=== PATIENT | female | born 1985 | race American Indian/Alaskan Native ===

== ENCOUNTER 2016-09-21 03:46 | Emergency (ER) | payer SELFPAY ==
[2016-09-21 04:40] LABS: Basophils % (Auto) 1.1 % (0.0-1.8); Eosinophils % (Auto) 3.1 % (0.0-4.3); Hematocrit 40.2 % (30.3-42.9); Hemoglobin 13.4 gm/dl (10.1-14.3); Mean Corpuscular HGB Conc 33 % (30-34); Mean Corpuscular Hemoglobin 29 pg (28-32); Mean Corpuscular Volume 86 fl (79-97); Platelet Count 232 K/mm3 (140-440); Red Blood Count 4.69 M/mm3 (3.65-5.03); Red Cell Distribution Width 13.6 % (13.2-15.2); White Blood Count 5.9 K/mm3 (4.5-11.0)
[2016-09-21 04:59] LABS: Alanine Aminotransferase 12 units/L (7-56); Albumin 3.9 g/dL (3.9-5); Albumin/Globulin Ratio 1.1 %; Alkaline Phosphatase 63 units/L (35-129); Anion Gap 17 mmol/L; BUN/Creatinine Ratio 17.14; Blood Urea Nitrogen 12 mg/dL (7-17); Calcium 8.7 mg/dL (8.4-10.2); Carbon Dioxide 24 mmol/L (22-30); Chloride 102.3 mmol/L (98-107); Glucose 91 mg/dL (65-100); Lipase 22 units/L (13-60); Sodium 139 mmol/L (137-145); Total Protein 7.4 g/dL (6.3-8.2)
[2016-09-21 16:05] LABS: Bilirubin,Urine NEG (Negative); Blood,Urine MOD (Negative); Ketones,Urine NEG (Negative); Leukocyte Esterase,Urine NEG (Negative); Mucus,Urine FEW /HPF; Nitrite,Urine NEG (Negative); Protein,Urine <15 mg/dL mg/dL (Negative); Urobilinogen,Urine < 2.0 mg/dL (<2.0); WBC,Urine < 1.0 /HPF (0.0-6.0)
[2016-09-21] MEDS ORDERED: ALUM-MAG HYDROX-SIMETH 200-200-20MG/5ML PO ONE (17:00)
[2016-09-21] MEDS ORDERED: PERCOCET 5/325 PO ONE (17:00)
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
--- NOTE | 2016-09-21 17:40 | Cat Scan Report ---
FINAL REPORT PROCEDURE: CT HEAD/BRAIN WO CON TECHNIQUE: Computerized tomography of the head was performed without contrast material. HISTORY: Headache. COMPARISON: No prior studies are available for comparison. FINDINGS: Skull and scalp: Normal. Paranasal sinuses: Minimal ethmoid sinusitis.. Ventricles and subarachnoid spaces: Asymmetric of the right ventricular system compared to the left. Cerebrum: No evidence of hemorrhage, acute infarction or mass . Cerebellum and brainstem: No evidence of hemorrhage, acute infarction or mass. Vasculature: Normal. Comments: None. IMPRESSION: No CT evidence of acute intracranial pathology. Asymmetry of the ventricles felt to most likely be related to suboptimal patient positioning. Consider MRI of the brain for further characterization if there is continued clinical concern and patient has no contraindication to MRI. Minimal sinusitis.
[2016-09-21 18:40] VITALS: BP 114/71
== END 2016-09-21 18:15 | disposition home or self-care (01) ==
LOC: ED 03:46
DX: F41.9 Anxiety disorder, unspecified (principal); R07.89 Other chest pain; R10.13 Epigastric pain; R51 Headache; J32.2 Chronic ethmoidal sinusitis; F32.9 Major depressive disorder, single episode, unspecified; F17.200 Nicotine dependence, unspecified, uncomplicated; F41.0 Panic disorder [episodic paroxysmal anxiety]
CPT/HCPCS: 36415; 70450; 80053; 81001; 81025; 83690; 84484; 85025; 93005; 93010

== ENCOUNTER 2019-01-27 11:58 | Outpatient (CLI) | payer OTHER ==
[2019-01-27 12:19] LABS: Hematocrit 39.6 % (30.3-42.9); Hemoglobin 12.9 gm/dl (10.1-14.3); Mean Corpuscular HGB Conc 33 % (30-34); Mean Corpuscular Volume 85 fl (79-97); Platelet Count 271 K/mm3 (140-440); Red Blood Count 4.67 M/mm3 (3.65-5.03); Red Cell Distribution Width 15.5 % (13.2-15.2)
[2019-01-27 12:40] LABS: Alanine Aminotransferase 11 units/L (7-56); BUN/Creatinine Ratio 14; Blood Urea Nitrogen 10 mg/dL (7-17); Calcium 9.2 mg/dL (8.4-10.2); Chol/HDL Ratio 4.31 %; HDL Cholesterol 35 mg/dL (40-59); Hemolysis Index 3; LDL Cholesterol,Direct 113 mg/dL (50-130)
[2019-01-27 13:02] LABS: Free T4 (Free Thyroxine) 0.93 ng/dL (0.76-1.46)
[2019-01-30 13:56] LABS: Vitamin D, 25-OH, D2 <4 ng/mL
== END 2019-01-27 11:59 | disposition home or self-care (01) ==
LOC: LAB 11:58
DX: Z79.899 Other long term (current) drug therapy (principal)
CPT/HCPCS: 36415; 80053; 80061; 82306; 84439; 84443; 85027

== ENCOUNTER 2019-03-29 15:51 | Emergency (ER) | payer OTHER ==
--- NOTE | 2019-03-29 16:03 | Event Note ---
ED Screening Note Date of service: 03/29/19 Time: 16:02 ED Screening Note: Pt complains of chest pain x 2 hours ago hx of panic attacks-states not currently anxious denies leg pain or swelling This initial assessment/diagnostic orders/clinical plan/treatment(s) is/are subject to change based on patients health status, clinical progression and re- assessment by fellow clinical providers in the ED. Further treatment and workup at subsequent clinical providers discretion. Patient/guardian urged not to elope from the ED as their condition may be serious if not clinically assessed and managed. Initial orders include: labs CXR
[2019-03-29 16:59] LABS: HCG Qualitative,Urine Negative (Negative)
[2019-03-29 17:03] LABS: Basophils % (Auto) 0.9 % (0.0-1.8); Eosinophils # (Auto) 0.1 K/mm3 (0.0-0.4); Eosinophils % (Auto) 2.1 % (0.0-4.3); Hematocrit 40.8 % (30.3-42.9); Hemoglobin 13.1 gm/dl (10.1-14.3); Lymphocytes # (Auto) 2.1 K/mm3 (1.2-5.4); Lymphocytes % (Auto) 39.2 % (13.4-35.0); Mean Corpuscular HGB Conc 32 % (30-34); Mean Corpuscular Volume 85 fl (79-97); Monocytes # (Auto) 0.4 K/mm3 (0.0-0.8); Monocytes % (Auto) 6.5 % (0.0-7.3); Platelet Count 319 K/mm3 (140-440); Red Blood Count 4.81 M/mm3 (3.65-5.03); Red Cell Distribution Width 15.5 % (13.2-15.2)
--- NOTE | 2019-03-29 17:17 | XRay Report ---
CHEST 1 VIEW INDICATION: chest pain. COMPARISON: None. FINDINGS: Support devices: None. Heart: Normal. Lungs/Pleura: No acute pulmonary or pleural findings. IMPRESSION: 1. No acute findings. Signer Name: Ricardo Luke MD Signed: 03/29/2019 5:13 PM Workstation Name: [id number]
[2019-03-29 17:31] LABS: Alanine Aminotransferase 11 units/L (7-56); Albumin 4.1 g/dL (3.9-5); BUN/Creatinine Ratio 11; Blood Urea Nitrogen 8 mg/dL (7-17); Calcium 9.4 mg/dL (8.4-10.2); Hemolysis Index 13
--- NOTE | 2019-03-30 00:19 | Emergency Department Report ---
- General Chief Complaint: Chest Pain Stated Complaint: CHEST PAIN Time Seen by Provider: 03/29/19 16:01 Source: patient Mode of arrival: Ambulatory Limitations: No Limitations - History of Present Illness Initial Comments: Chest pain with coughing MD Complaint: cough -: Gradual, days(s) Quality: aching Consistency: intermittent Improves With: nothing Worsens With: other (coughing) Associated Symptoms: headache, nasal congestion, cough, chest pain. denies: fever, chills, myalgias, diaphoresis, rhinorrhea, sore throat, stiff neck, shortness of breath, abdominal pain, nausea, vomiting, diarrhea, dysuria, rash, confusion, right sweats, weight loss, epistaxis, hoarseness, ear pain - Related Data Home Medications Medication Instructions Recorded Confirmed Last Taken clonazePAM [Klonopin] 1 mg PO BID PRN 06/15/13 06/21/13 06/14/13 Previous Rx's Medication Instructions Recorded Last Taken Type Acetaminophen/Codeine [Tylenol #3] 1 tab PO Q6H PRN #14 tab 06/21/13 Unknown Rx Ciprofloxacin HCl [Cipro] 500 mg PO Q12H #20 tab 06/21/13 Unknown Rx Phenazopyridine [Pyridium] 200 mg PO PC #10 tablet 06/21/13 Unknown Rx Amoxicillin/K Clav Tab [Augmentin 1 tab PO BID #20 tablet 12/08/13 Unknown Rx 875MG] Fluticasone Propionate [Flonase] 2 sprays NS QDAY #1 spray 12/08/13 Unknown Rx Loratadine (Nf) [Claritin] 10 mg PO DAILY #30 tablet 12/08/13 Unknown Rx Promethazine /Codeine 5 ml PO Q6H PRN #150 udc 12/08/13 Unknown Rx [Phenergan/Codeine 6.25-10 mg/5 ml] predniSONE [Deltasone] 50 mg PO QDAY #5 tab 12/08/13 Unknown Rx Acetaminophen/Codeine 1 tab PO Q6H PRN #20 tab 04/30/14 Unknown Rx [Acetaminophen-Codeine #3 TAB] Sulfamethoxazole/Trimethoprim 1 each PO BID #20 tablet 04/30/14 Unknown Rx [Bactrim Ds] Albuterol Sulfate [Ventolin HFA] 2 puff IH Q4H PRN #1 hfa.aer.ad 06/23/14 Unknown Rx EPINEPHrine [Epipen 2-Jordan] 0.3 mg IJ ONCE PRN #.6 ml 06/23/14 Unknown Rx Famotidine [Pepcid] 20 mg PO BID #6 tablet 06/23/14 Unknown Rx diphenhydrAMINE [Benadryl] 50 mg PO Q6HR #24 capsule 06/23/14 Unknown Rx predniSONE [Deltasone] 10 mg PO .TAPER #48 tab 06/23/14 Unknown Rx Amoxicillin/K Clav Tab [Augmentin 1 tab PO Q12HR #14 tab 09/21/16 Unknown Rx 875 mg] Escitalopram Oxalate [Lexapro] 5 mg PO QDAY #30 tablet 09/21/16 Unknown Rx Famotidine [Pepcid] 20 mg PO BID #30 tablet 09/21/16 Unknown Rx clonazePAM [Klonopin] 1 mg PO BID #28 tablet 09/21/16 Unknown Rx oxyCODONE /ACETAMINOPHEN [Percocet 1 tab PO Q6HR PRN #20 tablet 09/21/16 Unknown Rx 5/325] Benzonatate [Tessalon Perles] 100 mg PO Q8HR PRN #12 capsule 03/30/19 Unknown Rx Allergies Allergy/AdvReac Type Severity Reaction Status Date / Time acetaminophen [From Vicodin] Allergy Rash Verified 03/29/19 15:53 hydrocodone bitartrate Allergy Rash Verified 03/29/19 15:53 [From Vicodin] ibuprofen AdvReac ANXIETY Verified 03/29/19 15:53 ED Review of Systems ROS: Stated complaint: CHEST PAIN Other details as noted in HPI Other: GENERAL: No weight change, fatigue, fever, chills, or night sweats SKIN: No changes in skin or hair, no itching, no rashes, no jaundice HEAD: No trauma EYES: No blurriness, tearing, itching, acute visual loss, conjunctival discoloration, or scleral icterus EARS: No hearing loss, tinnitus, vertigo, or earache NOSE: No rhinorrhea, stuffiness, sneezing, itching, or epistaxis MOUTH: No bleeding gums, hoarseness, sore throat, or swelling CARDIAC: Chest pain with cough. No new murmur, palpitations, dyspnea on exertion, orthopnea, PND, or edema RESPIRATORY: Cough. No shortness of breath, wheeze, sputum production, hemoptysis GI: No abdominal pain, nausea, vomiting, dysphagia, diarrhea, constipation, hematemesis, melena, hematochezia URINARY: No frequency, urgency, polyuria, dysuria, hematuria, or incontinence MUSCULOSKELETAL: No muscle weakness, joint stiffness, decrease in range of motion, redness, swelling NEUROLOGIC: No headache, syncope, loss of sensation, numbness, tingling, tremors, weakness, paralysis, seizures HEMATOLOGIC: No anemia, easy bruising, bleeding, petechiae, or purpura ENDOCRINE: No hot or cold intolerance, sweating, polyuria, polydipsia or, polyphagia no thyroid problems PSYCHIATRIC: No change in mood, no anxiety, no depression ED Past Medical Hx - Past Medical History Hx Psychiatric Treatment: Yes (panic attacks, depression/anxiety) - Surgical History Additional Surgical History: - Social History Smoking Status: Current Every Day Smoker Substance Use Type: None - Medications Home Medications: Home Medications Medication Instructions Recorded Confirmed Last Taken Type clonazePAM [Klonopin] 1 mg PO BID PRN 06/15/13 06/21/13 06/14/13 History Acetaminophen/Codeine [Tylenol #3] 1 tab PO Q6H PRN #14 tab 06/21/13 Unknown Rx Ciprofloxacin HCl [Cipro] 500 mg PO Q12H #20 tab 06/21/13 Unknown Rx Phenazopyridine [Pyridium] 200 mg PO PC #10 tablet 06/21/13 Unknown Rx Amoxicillin/K Clav Tab [Augmentin 1 tab PO BID #20 tablet 12/08/13 Unknown Rx 875MG] Fluticasone Propionate [Flonase] 2 sprays NS QDAY #1 spray 12/08/13 Unknown Rx Loratadine (Nf) [Claritin] 10 mg PO DAILY #30 tablet 12/08/13 Unknown Rx Promethazine /Codeine 5 ml PO Q6H PRN #150 udc 12/08/13 Unknown Rx [Phenergan/Codeine 6.25-10 mg/5 ml] predniSONE [Deltasone] 50 mg PO QDAY #5 tab 12/08/13 Unknown Rx Acetaminophen/Codeine 1 tab PO Q6H PRN #20 tab 04/30/14 Unknown Rx [Acetaminophen-Codeine #3 TAB] Sulfamethoxazole/Trimethoprim 1 each PO BID #20 tablet 04/30/14 Unknown Rx [Bactrim Ds] Albuterol Sulfate [Ventolin HFA] 2 puff IH Q4H PRN #1 hfa.aer.ad 06/23/14 Un known Rx EPINEPHrine [Epipen 2-Jordan] 0.3 mg IJ ONCE PRN #.6 ml 06/23/14 Unknown Rx Famotidine [Pepcid] 20 mg PO BID #6 tablet 06/23/14 Unknown Rx diphenhydrAMINE [Benadryl] 50 mg PO Q6HR #24 capsule 06/23/14 Unknown Rx predniSONE [Deltasone] 10 mg PO .TAPER #48 tab 06/23/14 Unknown Rx Amoxicillin/K Clav Tab [Augmentin 1 tab PO Q12HR #14 tab 09/21/16 Unknown Rx 875 mg] Escitalopram Oxalate [Lexapro] 5 mg PO QDAY #30 tablet 09/21/16 Unknown Rx Famotidine [Pepcid] 20 mg PO BID #30 tablet 09/21/16 Unknown Rx clonazePAM [Klonopin] 1 mg PO BID #28 tablet 09/21/16 Unknown Rx oxyCODONE /ACETAMINOPHEN [Percocet 1 tab PO Q6HR PRN #20 tablet 09/21/16 Unknown Rx 5/325] Benzonatate [Tessalon Perles] 100 mg PO Q8HR PRN #12 capsule 03/30/19 Unknown Rx ED Physical Exam - General Limitations: No Limitations - Other Other exam information: GENERAL: Patient in no acute distress HEAD: Normocephalic, atraumatic EYES: PERRLA, EOM intact, no scleral icterus, no conjunctival hemorrhage, visual mosley and acuity wnl NOSE: No tenderness, discharge, sinus tenderness MOUTH: No erythema, bleeding, exudate HEART: Regular rate and rhythm, no murmur, S1-S2 are auscultated, no edema, pulses are symmetric LUNGS: No respiratory distress. Bilateral breath sounds, No tachypnea, No retractions, No wheezing, rales, rhonchi ABDOMEN: Normal bowel sounds, abdomen soft, no tenderness, no rebound, no guarding, no distention, no masses, no CVA tenderness MUSCULOSKELETAL: Normal joint range of motion, no redness, no swelling, no tenderness NEUROLOGIC: GCS 15, Alert and Oriented x3, Cranial nerves intact, normal sensation, normal strength, no cerebellar deficit, NIHSS 0 SKIN: Skin is warm and dry, no wounds, no rashes ED Course Vital Signs 03/29/19 03/30/19 16:02 00:46 Temperature 98.8 F Pulse Rate 98 H 89 Respiratory 18 16 Rate Blood Pressure 139/107 Blood Pressure 145/95 [Left] O2 Sat by Pulse 100 99 Oximetry ED Medical Decision Making - Lab Data Result diagrams: 03/29/19 16:14 03/29/19 16:14 Laboratory Results - last 24 hr 03/29/19 03/29/19 03/29/19 16:00 16:14 16:14 WBC 5.4 RBC 4.81 Hgb 13.1 Hct 40.8 MCV 85 MCH 27 L MCHC 32 RDW 15.5 H Plt Count 319 Lymph % (Auto) 39.2 H Stokes % (Auto) 6.5 Eos % (Auto) 2.1 Baso % (Auto) 0.9 Lymph # 2.1 Stokes # 0.4 Eos # 0.1 Baso # 0.0 Seg Neutrophils % 51.3 Seg Neutrophils # 2.8 Sodium 138 Potassium 4.3 Chloride 104.9 Carbon Dioxide 21 L Anion Gap 16 BUN 8 Creatinine 0.7 Estimated GFR > 60 BUN/Creatinine Ratio 11 Glucose 88 Calcium 9.4 Total Bilirubin 0.30 AST 15 ALT 11 Alkaline Phosphatase 80 Troponin T < 0.010 Total Protein 8.0 Albumin 4.1 Albumin/Globulin Ratio 1.1 Urine HCG, Qual Negative - EKG Data When compared to previous EKG there are: no significant change - Radiology Data Radiology results: report reviewed - Medical Decision Making PERC negative. Patient comfortable. Updated with results. Plan discharge with outpatient follow up. Return if any worsening. Critical care attestation.: If time is entered above; I have spent that time in minutes in the direct care of this critically ill patient, excluding procedure time. ED Disposition Clinical Impression: Cough, Costochondritis Disposition: - TO HOME OR SELFCARE Is pt being admited?: No Condition: Stable Instructions: Costochondritis (ED), Acute Cough (ED) Prescriptions: Benzonatate [Tessalon Perles] 100 mg PO Q8HR PRN #12 capsule PRN Reason: Cough Referrals: PRIMARY CARE, [Primary Care Provider] - 2-3 Days SHAHEEN ADORNO MD [Staff Physician] - as needed [facility] [Outside] - as needed Time of Disposition: 00:17
[2019-03-30 00:47] VITALS: BP 145/95
== END 2019-03-30 00:48 | disposition home or self-care (01) ==
LOC: ED 15:51
DX: M94.0 Chondrocostal junction syndrome [Tietze] (principal); F17.200 Nicotine dependence, unspecified, uncomplicated; F32.9 Major depressive disorder, single episode, unspecified; F41.9 Anxiety disorder, unspecified; F41.0 Panic disorder [episodic paroxysmal anxiety]; Z88.6 Allergy status to analgesic agent; Z88.5 Allergy status to narcotic agent; Z79.899 Other long term (current) drug therapy
CPT/HCPCS: 36415; 71045; 80053; 81025; 84484; 85025; 93005; 93010